=== PATIENT | female | born 1935 | race Caucasian/White ===

== ENCOUNTER 2017-02-01 11:03 | Day surgery (SDC) | payer MEDICARE ==
[~2017-02-01] VITALS: Ht 152.4 cm; Wt 64.0 kg
[~2017-02-01 11:03] MED LIST: ASPI1TAB PO; ATEN100T7 PO; BETA0.12 TOP; CLAR10CA3 PO; CO Q100C10 PO; COLA100C5 PO; FLON1SPR; LIPI10TA PO; MULTLIQ7 PO; OCUVTAB PO; RANI15TA PO; ULTR37.54 PO; VISI1CAP PO; VITA100067 PO
[2017-02-01] MEDS ORDERED: PROPOFOL 200 MG/20 ML VIAL As Ordered ONE (11:21)
[2017-02-01] MEDS ORDERED: LIDOCAINE 2% INJ 100 MG/5 ML SDV (FOR ANES.) As Ordered ONE (11:21)
[2017-02-01] MEDS ORDERED: NS 1,000 ML IV ONE (12:30)
--- NOTE | 2017-02-01 13:38 | ROOR ---
Patient Name: Amarilis Wilkes Procedure Date: 02/01/2017 1:18 PM Date of : 1935 Age: 81 Room: [id number] Gender: Female Note Status: Finalized Procedure: Colonoscopy Indications: High risk colon cancer surveillance: Personal history of colonic polyps, Surveillance: Personal history of adenomatous polyps on last colonoscopy > 3 years ago, High risk colon cancer surveillance: Personal history of adenoma (10 mm or greater in size), Last colonoscopy: December 2013 Providers: Brodie ALMENDAREZ MD Referring MD: SARAY BARRAZA MD Requesting Provider: Medicines: Monitored Anesthesia Care Complications: No immediate complications. Procedure: Pre-Anesthesia Assessment: - The heart rate, respiratory rate, oxygen saturations, blood pressure, adequacy of pulmonary ventilation, and response to care were monitored throughout the procedure. The Colonoscope was introduced through the anus and advanced to the cecum, identified by appendiceal orifice and ileocecal valve. The colonoscopy was performed without difficulty. The patient tolerated the procedure well. The quality of the bowel preparation was good. Findings: The perianal and digital rectal examinations were normal. (Exam: Complete, Prep: Good or Excellent.) Mild diverticulosis and small internal hemorrhoids. The entire examined colon appeared normal on direct and retroflexion views. Impression: - (Exam: Complete, Prep: Good or Excellent.) - Mild diverticulosis and small internal hemorrhoids. - The entire examined colon is normal on direct and retroflexion views. - Previous polypectomy site in cecum is noted by mucosal scar. There is no residual polyp tissue seen. - No specimens collected. Recommendation: - Repeat colonoscopy in 5 years for surveillance based on personal history of previous adenomatous polyps. Brodie Almendarez MD Brodie ALMENDAREZ MD 02/01/2017 1:38:28 PM This report has been signed electronically. Number of Addenda: 0 Note Initiated On: 02/01/2017 1:18 PM Estimated Blood Loss: Estimated blood loss: none.
[2017-02-01 14:00] VITALS: BP 178/78
== END 2017-02-01 14:17 | disposition home or self-care (01) ==
LOC: M OPP 11:03
PROVIDERS: ATTEND Internal Medicine Gastroenterology
DX: Z12.11 Encounter for screening for malignant neoplasm of colon (principal); Z86.010 Personal history of colon polyps; K57.30 Diverticulosis of large intestine without perforation or abscess without bleeding; K64.8 Other hemorrhoids; I10 Essential (primary) hypertension; E78.5 Hyperlipidemia, unspecified; M19.90 Unspecified osteoarthritis, unspecified site; M62.81 Muscle weakness (generalized); H40.9 Unspecified glaucoma; Z78.0 Asymptomatic menopausal state; Z87.891 Personal history of nicotine dependence; Z88.1 Allergy status to other antibiotic agents; Z88.0 Allergy status to penicillin; Z88.2 Allergy status to sulfonamides; Z91.041 Radiographic dye allergy status; Z79.82 Long term (current) use of aspirin; Z79.899 Other long term (current) drug therapy

== ENCOUNTER → 2018-09-15 | Outpatient (CLI) | payer MEDICARE ==
[~2018-09-15] MED LIST changes: -ASPI1TAB PO; +ASPI81TA26 PO
--- NOTE | 2018-09-15 15:09 | REPMRS ---
Patient History The patient states she has not had a clinical breast exam in over a year. Patient is postmenopausal. No known family history of cancer. Benign excisional biopsy of the right breast, July 12, 2007. 3D TOMOSYNTHESIS WAS PERFORMED. The [facility] lifetime risk for breast cancer is 0.4%. Digital Woman Screen Mammo: September 15, 2018 - Exam #: [id number] Bilateral CC and MLO view(s) were taken. Technologist: Dominga Ricks, Technologist FINDINGS: The breast tissue is heterogeneously dense. This may lower the sensitivity of mammography. There has been no change in the appearance of the mammogram from the prior studies. There is a moderate amount of residual fibroglandular tissue which is fairly symmetric. There is no interval development of dominant mass, areas of architectural distortion, or clustered microcalcification typical of malignancy. Assessment: BI-RADS/ACR category 1 mammogram. Negative Mammogram. Recommendation Routine screening mammogram in 1 year (for women over age 40). This mammogram was interpreted with the aid of an FDA-approved computer-aided dectection system. Electronically Signed By: Mendoza Douglas MD 09/15/18 [id number]
== END ==
LOC: M WHC 12:57
PROVIDERS: ATTEND Internal Medicine
DX: Z12.31 Encounter for screening mammogram for malignant neoplasm of breast (principal)

== ENCOUNTER → 2019-01-12 | Outpatient (CLI) | payer MEDICARE ==
--- NOTE | 2019-01-12 18:38 | REP ---
Right ankle four views: Mineralization and joint spaces are unremarkable. There is no fracture or dislocation. There are no calcifications or foreign bodies. There is a calcaneal plantar spur. Impression: Essentially negative right ankle. Electronically Signed by Mendoza Rdz MD 01/12/2019 06:29 P
--- NOTE | 2019-01-12 19:20 | REP ---
Right foot four views: There is mild osteoarthritis at the great toe MTP. 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 There is no fracture or dislocation. There is a calcaneal plantar spur. Impression: Osteoarthritis and calcaneal plantar spur. Electronically Signed by Mendoza Rdz MD 01/12/2019 07:11 P
== END ==
LOC: M WUC 17:22
PROVIDERS: ATTEND Physician Assistant
DX: S90.01XA Contusion of right ankle, initial encounter (principal); S90.31XA Contusion of right foot, initial encounter; X58.XXXA Exposure to other specified factors, initial encounter; Y92.89 Other specified places as the place of occurrence of the external cause; M77.31 Calcaneal spur, right foot; M19.071 Primary osteoarthritis, right ankle and foot

== ENCOUNTER 2019-01-25 10:28 | Emergency (ER) | payer MEDICARE ==
[~2019-01-25] VITALS: Ht 182.9 cm; Wt 91.3 kg
[2019-01-25 11:24] LABS: BASO # 0.1 10^3/uL (0.0-0.2); BASO % 0.8 % (0.0-1.0); HEMATOCRIT 38.4 % (36.0-47.0); HEMOGLOBIN 12.5 g/dl (12.0-15.5); LYMPH # 1.1 10^3/uL (1.5-5.0); LYMPH % 14.1 % (24.0-44.0); MEAN CORPUSCULAR HEMOGLOBIN 32.1 pg (27.0-33.0); MEAN CORPUSCULAR HGB CONC 32.6 g/dl (32.0-36.5); MEAN CORPUSCULAR VOLUME 98.5 fl (80.0-96.0); MONO # 0.4 10^3/uL (0.0-0.8); MONO % 5.4 % (0.0-5.0); NEUTROPHILS # 6.2 10^3/uL (1.5-8.5); NEUTROPHILS % 79.3 % (36.0-66.0); PLATELET COUNT, AUTOMATED 259 10^3/uL (150-450); WHITE BLOOD COUNT 7.8 10^3/uL (4.0-10.0)
--- NOTE | 2019-01-25 11:38 | REP ---
Single view chest: 01/25/2019. Indication: Chest trauma. Comparison: 06/09/2007. Findings: The lungs are clear. There is no pleural effusion. There is no pneumothorax. The cardiomediastinal silhouette is unremarkable. Aortic atherosclerotic disease is present. Impression: No acute cardiopulmonary process. Electronically Signed by Jameson Hickman DO 01/25/2019 11:30 A
[2019-01-25 12:03] LABS: ALBUMIN 3.3 GM/DL (3.2-5.2); ALT/SGPT 25 U/L (12-78); BILIRUBIN,DIRECT < 0.1 MG/DL (0.0-0.2); BILIRUBIN,TOTAL 0.2 MG/DL (0.2-1.0); BLOOD UREA NITROGEN 24 MG/DL (7-18); CALCIUM LEVEL 8.7 MG/DL (8.8-10.2); CARBON DIOXIDE LEVEL 24 MEQ/L (21-32); CHLORIDE LEVEL 110 MEQ/L (98-107); CPK CREATINE PHOSPHOKINASE 56 U/L (26-192); CREATININE FOR GFR 1.18 MG/DL (0.55-1.30); GLOMERULAR FILTRATION RATE 46.5 (>32); GLUCOSE, FASTING 118 MG/DL (70-100); MB/CK RELATIVE INDEX 3.57 (< OR =4); POTASSIUM SERUM 4.7 MEQ/L (3.5-5.1); SODIUM LEVEL 142 MEQ/L (136-145); TOTAL PROTEIN 7.2 GM/DL (6.4-8.2); TROPONIN I < 0.02 NG/ML (< 0.10)
[2019-01-25 13:03] LABS: NT-PRO BNP 632 PG/ML (<450)
[2019-01-25] MEDS ORDERED: NS 500 ML IV ONE ×2 (14:45→16:30)
--- NOTE | 2019-01-25 15:08 | REP ---
CT brain: 01/25/2019. Indication: Near-syncope. Comparison: None. Technique: Unenhanced axial CT images of the brain were obtained from skull base to vertex. Findings: There is no acute intracranial hemorrhage, acute cortical infarction, mass effect, hydrocephalus or significant fluid within the visualized paranasal sinuses/mastoid air cells. Impression: No acute intracranial process. Electronically Signed by Jameson Hickman DO 01/25/2019 03:00 P
[2019-01-25 17:15] VITALS: BP 145/65
--- NOTE | 2019-01-25 18:09 | REP ---
CT chest without contrast: History: CHF. Comparison chest x-ray: 10:55 a.m. on this date. No comparison CT study. CT findings: No infiltrate is seen in the lung davila. There is a fairly large air cyst or bullous in the left lower lobe. This measures, which 3.4 x 4.9 x 7.8 cm. There is a smaller bullous in the posterior pleural angle on the right. Mild emphysematous changes are seen in the upper and lower lung davila. No pulmonary mass or nodule is seen. No evidence of pneumonia. No pleural effusion is seen. The heart is not felt to be enlarged. There is some vascular calcification. No hilar or mediastinal mass or adenopathy is observed. No adrenal lesion is seen. Visualized upper abdominal structures are unremarkable. Bone window settings show no significant bony abnormality. Impression: Emphysematous changes. Bibasilar bullous air cysts. Left greater than right. Vascular calcification. Otherwise no acute disease. Electronically Signed by Marcio Kessler MD 01/25/2019 06:43 P
--- NOTE | 2019-01-26 13:01 | ECGEPIP ---
[facility] - ED Test Date: 2019-01-25 Pat Name: LUIS ARMANDO DIAZ Department: Room: - Gender: Female Building [employer] Supervisor: LORIE : 1935 Requested By: MEENAKSHI Ruvalcaba Order Number: [id number] Reading MD: Suri Stanton Measurements Intervals [place] Rate: 64 P: -37 DE: 165 QRS: 8 QRSD: 93 T: 17 QT: 414 QTc: 427 Interpretive Statements SINUS RHYTHM baseline artifact may affect interpretation NSTTW abnormalities NO PRIOR Electronically Signed on 01-26-2019 13:01:10 EST by Suri Stanton
== END 2019-01-25 17:38 | disposition home or self-care (01) ==
LOC: M ED 10:28
DX: I95.1 Orthostatic hypotension (principal); R91.8 Other nonspecific abnormal finding of lung field; I10 Essential (primary) hypertension; E78.5 Hyperlipidemia, unspecified; Z87.891 Personal history of nicotine dependence; Z88.0 Allergy status to penicillin; Z88.1 Allergy status to other antibiotic agents; Z88.2 Allergy status to sulfonamides; Z91.041 Radiographic dye allergy status; Z79.82 Long term (current) use of aspirin; Z79.891 Long term (current) use of opiate analgesic; Z79.899 Other long term (current) drug therapy

== ENCOUNTER → 2020-08-22 | Outpatient (CLI) | payer MEDICARE | LOC: M LABSMTC 12:45 | PROVIDERS: ATTEND Pediatrics | DX: Z20.822 Contact with and (suspected) exposure to COVID-19 (principal) ==

== ENCOUNTER 2022-09-02 03:53 | Emergency (ER) | payer MEDICARE ==
[~2022-09-02] VITALS: Ht 149.9 cm; Wt 54.5 kg
[~2022-09-02 03:53] MED LIST changes: +ULTR1TAB PO; -ULTR37.54 PO
[2022-09-02 04:37] LABS: BASO % 0.5 % (0.0-1.0); HEMATOCRIT 33.2 % (36.0-47.0); HEMOGLOBIN 10.7 g/dl (12.0-15.5); LYMPH # 0.5 10^3/uL (1.5-5.0); LYMPH % 8.3 % (24.0-44.0); MEAN CORPUSCULAR HEMOGLOBIN 30.7 pg (27.0-33.0); MEAN CORPUSCULAR HGB CONC 32.2 g/dl (32.0-36.5); MEAN CORPUSCULAR VOLUME 95.1 fl (80.0-96.0); MONO # 0.6 10^3/uL (0.0-0.8); MONO % 10.7 % (2.0-8.0); NEUTROPHILS # 4.4 10^3/uL (1.5-8.5); NEUTROPHILS % 80.3 % (36.0-66.0); PLATELET COUNT, AUTOMATED 218 10^3/uL (150-450); RED BLOOD COUNT 3.49 10^6/uL (4.00-5.40); WHITE BLOOD COUNT 5.5 10^3/uL (4.0-10.0)
[2022-09-02] MEDS ORDERED: ELIQ2.5T PO (04:38)
[2022-09-02] MEDS ORDERED: SERT25TA85 PO (04:38)
[2022-09-02] MEDS ORDERED: PANT40TA29 PO (04:38)
[2022-09-02] MEDS ORDERED: MIRT1TAB17 PO (04:38)
[2022-09-02] MEDS ORDERED: FERR325T19 PO (04:38)
[2022-09-02] MEDS ORDERED: LISI10TA22 PO (04:38)
[2022-09-02] MEDS ORDERED: SING5CHW23 PO (04:39)
[2022-09-02] MEDS: NITROGLYCERIN 0.4MG SUBL TABLET SL PRN ×2 (04:56→05:14)
[2022-09-02 05:14] VITALS: BP 132/60
[2022-09-02] MEDS ORDERED: MORPHINE 4 MG/ML 1ML VIAL IV ONE (05:25)
[2022-09-02 07:12] LABS: LIPASE 32 U/L (12-53)
[2022-09-02 07:14] LABS: ALBUMIN 3.6 G/DL (3.2-5.2); ALKALINE PHOSPHATASE 81 U/L (46-116); ALT/SGPT < 9 U/L (7.0-40); AST/SGOT 19 U/L (<34); BILIRUBIN,DIRECT 0.1 MG/DL (<0.4); BILIRUBIN,TOTAL 0.7 MG/DL (0.3-1.2); BLOOD UREA NITROGEN 26 MG/DL (9-23); CALCIUM LEVEL 9.1 MG/DL (8.3-10.6); CARBON DIOXIDE LEVEL 21 MMOL/L (20-31); CHLORIDE LEVEL 104 MMOL/L (98-107); CREATININE FOR GFR 1.55 MG/DL (0.55-1.30); GLOMERULAR FILTRATION RATE 33.6 (>32); GLUCOSE, FASTING 110 MG/DL (74-106); POTASSIUM SERUM 5.1 MMOL/L (3.5-5.1); SODIUM LEVEL 133 MMOL/L (136-145); TOTAL PROTEIN 7.3 G/DL (5.7-8.2)
[2022-09-02 07:16] LABS: CPK CREATINE PHOSPHOKINASE 87 U/L (34-145); MB/CK RELATIVE INDEX 2.29 (< OR =4)
[2022-09-02] MEDS ORDERED: NORCO, ANEXSIA 5/325MG TABLET (HYDROcodone/ACETAMINOPHEN) PO ONE (07:50)
[2022-09-02] MEDS ORDERED: NIRMATRELVIR/RITONAVIR (RENAL) CO-PACK (EUA) PO SCH (09:00)
[2022-09-02] MEDS ORDERED: HYDR-3713 PO (12:24)
[2022-09-02 12:41] VITALS: BP 146/81; TEMP 97.8; O2SAT 96
== END 2022-09-02 12:52 | disposition home or self-care (01) ==
LOC: M ED 03:53
DX: U07.1 COVID-19 (principal); I10 Essential (primary) hypertension; E78.5 Hyperlipidemia, unspecified; K21.9 Gastro-esophageal reflux disease without esophagitis; F32.A Depression, unspecified; I25.2 Old myocardial infarction; Z79.01 Long term (current) use of anticoagulants; Z91.041 Radiographic dye allergy status; Z88.0 Allergy status to penicillin; Z88.1 Allergy status to other antibiotic agents; Z88.2 Allergy status to sulfonamides; Z88.8 Allergy status to other drugs, medicaments and biological substances; Z79.811 Long term (current) use of aromatase inhibitors; Z79.899 Other long term (current) drug therapy